=== PATIENT | male | born 1960 | race Caucasian/White ===

== ENCOUNTER 2018-06-11 20:45 | Emergency (ER) | payer OTHER ==
[2018-06-11 20:50] VITALS: BP 132/73; PULSE 55; TEMP 97.6; BMI 27.9
--- NOTE | 2018-06-11 20:54 | PDOC ---
Rapid Medical Evaluation Chief Complaint: Back Pain Time Seen by Provider: 06/11/18 20:47 Medical Evaluation: CC: Back pain HPI: Pt is a 58 YO male who states that he was running earlier today and he now has right sided back pain. Pt denies injury or trauma. Pt denies hx of IV drug use. Pt denies fever, denies urinary symptoms. Pt denies taking OTC meds. I have performed a brief in- person evaluation of this patient. Pertinent Physical Findings: Skin: Clear Lungs: Clear Heart: RRR Abdomen: no pain upon palpation; no CVAT MS: no pain upon palpation to the cervical, thoracic or lumbar spine. I can duplicate the pain by pressing on the muscles adjacent to the thoracic spine. Pt can duplicate the pain in this area with movement. 5/5 strength in LE. Negative straight leg test. Neuro: Alert Psych: Appropriate affect I have ordered: I feel this is more musculoskeletal in nature. The patient will proceed to: I will discharge the patient from [facility]. 06/11/18 20:48 Discharge Disposition - Diagnosis Back pain Qualifiers: Back pain location: low back pain Chronicity: acute Back pain laterality: right Sciatica presence: without sciatica Qualified Code(s): M54.5 - Low back pain - Referrals - Patient Instructions - Post Discharge Activity
--- NOTE | 2018-06-11 20:59 | PDOC ---
History of Present Illness - General Chief Complaint: Back Pain Stated Complaint: PAIN Time Seen by Provider: 06/11/18 20:47 History Source: Patient Exam Limitations: No Limitations - History of Present Illness Initial Comments: See GINGER HOLM and HPI. 06/11/18 20:55 Past History - Past Medical History Allergies/Adverse Reactions: Allergies Allergy/AdvReac Type Severity Reaction Status Date / Time No Known Allergies Allergy Verified 06/11/18 20:50 Home Medications: Ambulatory Orders Cyclobenzaprine HCl 5 mg PO TID 5 Days #15 tablet 06/11/18 COPD: No - Suicide/Smoking/Psychosocial Hx Smoking History: Never smoked Review of Systems - Review of Systems Able to Perform ROS?: Yes Constitutional: No: Chills, Fever Respiratory: No: Cough Cardiac (ROS): No: Chest Pain Musculoskeletal: Yes: Back Pain Neurological: No: Weakness *Physical Exam - Vital Signs Last Vital Signs Temp Pulse Resp BP Pulse Ox 97.6 F 55 L 18 132/73 99 06/11/18 20:47 06/11/18 20:47 06/11/18 20:47 06/11/18 20:47 06/11/18 20:47 - Physical Exam Comments: See GINGER UMANA 06/11/18 20:55 *DC/Admit/Observation/Transfer Diagnosis at time of Disposition: Back pain Qualifiers: Back pain location: low back pain Chronicity: acute Back pain laterality: right Sciatica presence: without sciatica Qualified Code(s): M54.5 - Low back pain - Discharge Dispostion Disposition: HOME Condition at time of disposition: Stable - Prescriptions Prescriptions: Cyclobenzaprine HCl 5 mg PO TID 5 Days #15 tablet - Referrals - Patient Instructions Printed Discharge Instructions: DI for Musculoskeletal Pain Additional Instructions: Take Ibuprofen 600 mg every six hours and muscle relaxer as directed. It is sedating. Do not drive, drink alcohol or work while taking this medicine. - Post Discharge Activity
== END 2018-06-11 21:03 | disposition home or self-care (01) ==
LOC: JERFT 20:45
DX: M54.5 Low back pain (principal)
CPT/HCPCS: 99281-25